=== PATIENT | female | born 1960 | race Caucasian/White ===

== ENCOUNTER 2018-08-11 01:54 | Emergency (ER) | payer BC ==
[~2018-08-11] VITALS: Ht 154.9 cm; Wt 65.9 kg
[2018-08-11] MEDS ORDERED: HYDR25TA PO (02:20)
[2018-08-11] MEDS ORDERED: CARV3 PO (02:20)
[2018-08-11 04:41] VITALS: BP 127/87
[2018-08-11] MEDS ORDERED: KETOROLAC TROMETHAMINE 60 MG/2 ML VIAL IM ONE (04:45)
== END 2018-08-11 05:18 | disposition home or self-care (01) ==
LOC: EMS 01:58
DX: G44.209 Tension-type headache, unspecified, not intractable (principal); I11.9 Hypertensive heart disease without heart failure; Z90.49 Acquired absence of other specified parts of digestive tract
CPT/HCPCS: 93005; 96372; 99283; J1885